=== PATIENT | male | born 1960 | race Caucasian/White ===

== ENCOUNTER 2018-12-30 13:07 | Emergency (ER) | payer MEDICARE ==
--- NOTE | 2018-12-30 13:53 | ED ---
Psych HPI - General Chief Complaint: Psychiatric Symptoms Stated Complaint: court order Time Seen by Provider: 12/30/18 13:17 Source: patient, police, RN notes reviewed Mode of arrival: ambulatory Limitations: no limitations - History of Present Illness Initial Comments: 58-year-old male presents emergency Department with for court ordered psychiatric evaluation. Patient reportedly has not been going to his appointments he states he does go is once a month injection appointment. He denies being suicidal or homicidal denies drug use does admit to occasional alcohol use no homicidal ideation. He has no physical complaints. - Related Data Home Medications Medication Instructions Recorded Confirmed Paliperidone IM [Invega Sustenna] 234 mg IM Q28D 12/30/18 12/30/18 Allergies Allergy/AdvReac Type Severity Reaction Status Date / Time No Known Allergies Allergy Verified 12/30/18 13:45 Review of Systems ROS Statement: Those systems with pertinent positive or pertinent negative responses have been documented in the HPI. ROS Other: All systems not noted in ROS Statement are negative. Past Medical History Past Medical History: No Reported History History of Any Multi-Drug Resistant Organisms: None Reported Past Surgical History: Appendectomy, Hernia Repair Past Psychological History: Depression Smoking Status: Current every day smoker Past Alcohol Use History: Rare Past Drug Use History: None Reported General Exam Limitations: no limitations General appearance: alert, in no apparent distress Head exam: Present: atraumatic, normocephalic, normal inspection Eye exam: Present: normal appearance, PERRL, EOMI. Absent: scleral icterus, conjunctival injection, periorbital swelling ENT exam: Present: normal exam, normal oropharynx, mucous membranes moist Neck exam: Present: normal inspection, full ROM. Absent: tenderness, meningismus, lymphadenopathy Respiratory exam: Present: normal lung sounds bilaterally. Absent: respiratory distress, wheezes, rales, rhonchi, stridor Cardiovascular Exam: Present: regular rate, normal rhythm, normal heart sounds. Absent: systolic murmur, diastolic murmur, rubs, gallop, clicks GI/Abdominal exam: Present: soft, normal bowel sounds. Absent: distended, tenderness, guarding, rebound, rigid Neurological exam: Present: alert, oriented X3 Psychiatric exam: Present: normal affect, normal mood Skin exam: Present: warm, dry, intact, normal color. Absent: rash Course Vital Signs 11/20/19 13:12 Temperature 98.0 F Pulse Rate 100 Respiratory 20 Rate Blood Pressure 172/89 O2 Sat by Pulse 99 Oximetry Medical Decision Making - Medical Decision Making 4-year-old male presented for psychiatric evaluation evaluated by EPS case discussed with psychiatrist, [facility] [place] and [facility] patient is safe for discharge safety plan, patient has follow-up appointments. Disposition Clinical Impression: Depression Disposition: HOME SELF-CARE Condition: Stable Instructions (If sedation given, give patient instructions): Depression (ED) Additional Instructions: Please return to the Emergency Department if symptoms worsen or any other concerns. Is patient prescribed a controlled substance at d/c from ED?: No Referrals: None,Stated [Primary Care Provider] - 1-2 days Time of Disposition: 15:45
[2018-12-30] MEDS ORDERED: cloNIDine HCL 0.1 MG TAB PO STA (15:56)
[2018-12-30 16:03] VITALS: BP 174/11; PULSE 70; RESP 18; TEMP 97.8
== END 2018-12-30 16:01 | disposition home or self-care (01) ==
LOC: EC 13:07
DX: Z04.6 Encounter for general psychiatric examination, requested by authority (principal); F32.9 Major depressive disorder, single episode, unspecified; F17.200 Nicotine dependence, unspecified, uncomplicated; Z79.899 Other long term (current) drug therapy
CPT/HCPCS: 82075; 99284